=== PATIENT | female | born 1985 | race Caucasian/White ===

== ENCOUNTER 2019-07-18 19:15 | Inpatient (IN) | payer SELFPAY ==
[2019-07-18 19:18] VITALS: BP 135/82; PULSE 99; RESP 16; TEMP 36.8; O2SAT 95; BMI 17.9
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
--- NOTE | 2019-07-18 19:42 | PC.NURSE ---
blood and urine collected
--- NOTE | 2019-07-18 19:52 | PC.NURSE ---
Per CONSERVATION SCIENTIST, pt ok to eat and drink
--- NOTE | 2019-07-18 19:58 | PC.NURSE ---
Per , pt ok to eat and drink
[2019-07-18 19:59] LABS: Basophils % 0.5 %; Eosinophils # 0.1 10^3/uL (0.0-0.8); Eosinophils % 1.5 %; HCG, Serum Qual Negative (Negative); Hematocrit 37.7 % (37.0-47.0); Lymphocytes # 2.4 10^3/uL (0.8-4.8); Lymphocytes % 27.5 %; Mean Corpuscular HGB Conc 31.8 g/dL (30.0-36.0); Mean Corpuscular Hemoglobin 29.3 pg (28.0-34.0); Mean Platelet Volume 10.1 fL (7.4-10.4); Monocytes # 0.7 10^3/uL (0.2-0.9); Monocytes % 8.1 %; Neutrophils # 5.4 10^3/uL (1.8-7.7); Neutrophils % 62.2 %; Nucleated Red Blood Cells % 0 %; Platelet Count 361 10^3/cmm (130-400); Red Cell Distribution Width 12.2 % (12.1-15.1); White Blood Count 8.7 10^3/uL (4.0-10.0)
[2019-07-18 20:07] LABS: Alanine Aminotransferase 10 U/L (0-33); Albumin Level 4.6 g/dL (3.5-5.2); Alkaline Phosphatase 62 IU/L (35-105); Anion Gap 13.9 (5-19); Aspartate Amino Transferase 16 U/L (0-32); Blood Urea Nitrogen 12 mg/dL (6-20); Calcium 9.3 mg/dL (8.5-10.5); Carbon Dioxide 27 mmol/L (22-29); Chloride 103 mmol/L (98-107); Globulin 2.7 g/dL (1.3-4.6); Glucose 89 mg/dL (65-115); Osmolality Calculated 286 mOsm/kg (285-295); Potassium 3.9 mmol/L (3.5-5.1); Sodium 140 mmol/L (136-145); Total Bilirubin 0.2 mg/dL (0.15-1.2); Total Protein 7.3 g/dL (6.6-8.7)
[2019-07-18 20:09] LABS: Acetaminophen < 5.0 ug/mL (10-30); Alcohol Level < 10 mg/dL (0-10); Salicylate < 0.3 mg/dL (3-10)
[2019-07-18 20:32] VITALS: BP 114/68; PULSE 75; RESP 16; O2SAT 97
[2019-07-18 21:08] VITALS: BP 114/68; PULSE 79; RESP 14; O2SAT 97
--- NOTE | 2019-07-18 21:24 | PC.NURSE ---
COLLECTIONS REP obtaining VS and signature on admission paperwork.
--- NOTE | 2019-07-18 21:47 | PC.NURSE ---
DAIRY EQUIPMENT SPECIALIST attempted to get admission paperwork signed, pt started getting agitated and shouting at DAIRY EQUIPMENT SPECIALIST stating she is being stereo-typed, rambling on about her God, COVID-19, being treated as a prisoner, if this was the animal kingdom they would already have her jugular . Security called, staff unsuccessfully attempting to calm pt. Dr Vazquez notified of pt's behavior, that pt is exhibiting paranoid, flight of ideas, rambling on and on and yelling at staff. Order obtained to make pt a 96 hour hold. maple products supervisor notified and 96 hour hold process started.
[2019-07-18 22:00] VITALS: BP 106/73; PULSE 79; RESP 17; TEMP 36.6; O2SAT 98
[2019-07-18 22:06] LABS: Amphetamines Screen Urine Positive (Negative); Barbiturates Screen Urine Negative (Negative); Benzodiazepines Screen Urine Positive (Negative); Cocaine Screen Urine Negative (Negative); Opiate Screen Urine Negative (Negative); PCP Screen Urine Negative (Negative); THC Screen Urine Positive (Negative)
--- NOTE | 2019-07-18 23:02 | PC.NURSE ---
33 YEAR OLD FEMALE ADMITTED INITIALLY VOLUNTARILY TO UNIT FROM ER WITH DIAGNOSIS OF SI. UPON ARRIVAL TO UNIT PT BEGAN CRYING AND YELLING LOUDLY. SPEECH WAS DISORGANIZED WITH FLIGHT OF IDEAS. PT UNABLE TO COMPLETE TRAIN OF THOUGHT DURING THIS TIME. SPEECH PRESSURED AND PATIENT HYPER CATHOLIC. PT BECAME INCREASINGLY AGITATED AND YELLING TO GO HOME. SECURITY UP AND REMAINED ON UNIT. CALL MADE AND ORDER GIVEN FOR 96 HOUR INVOLUNTARY COMITT, BENZOS AND THC.EMENT. PT GIVEN COPY . REFUSED ANY MEDICATIONS BUT AGREEABLE TO SKIN ASSESSMENT. PT THEN LAYED DOWN IN BED AND FELL ASLEEP. BAL NEGATIVE AND DOA + FOR AMPHETAMINES
[2019-07-19 06:00] VITALS: BP 107/68; PULSE 68; RESP 16; TEMP 36.7; O2SAT 98
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
[2019-07-19 14:00] VITALS: BP 150/89; PULSE 62; RESP 18; TEMP 37.2; O2SAT 98
[2019-07-19] MEDS: ARIPiprazole 10 mg Tablet PO (18:24)
[2019-07-19 21:40] VITALS: BP 105/66; PULSE 68; RESP 16; TEMP 36.7; O2SAT 98
[2019-07-20 06:00] VITALS: BP 113/72; PULSE 75; RESP 17; TEMP 36.9; O2SAT 97
[2019-07-20] MEDS: ARIPiprazole 10 mg Tablet PO (08:42)
[2019-07-20 13:13] VITALS: BP 94/59; PULSE 64; RESP 18; TEMP 37; O2SAT 96
--- NOTE | 2019-07-20 15:41 | P.PN_ITS ---
Subjective NPU Subjective: Interval history: Debra presents today desiring to be discharged today and wondering how soon she can be discharged. As she attempts to communicate this, she continues to be quite disorganized, at times, unable to locate the appropriate word, having some word finding difficulties in addition to making statements that absolutely make zero sense but that make sense to her. She appears to be understanding what is being said to her but having, at times, just word salad. We discussed the fact that we are not trying to hold her for a long time, because she was starting to get very frustrated, but our plan was to release her when she was safe and her mind is clear again, and it certainly is not that. Mental Status Exam MSE Comments: This is an underweight, white female, with adequate dress, grooming, and eye contact. No abnormal movements, except for mild psychomotor retardation. Cooperative with exam in mild distress. Speech was normal rate and volume. Mood described as better/good; affect congruent. Thought process, disorganized. Thought content: patient denied any suicidal or homicidal ideation, there were no delusions reported but some paranoia noted, she denied any auditory or visual hallucinations. Attention and concentration appeared intact, and memory was unreliable because she could not communicate what she remembers, but none were formally tested. She is alert and oriented to person and place. Insight and judgment are impaired. Vitals/I&O/Wt Last Vital Signs Temp 98.8 F 07/20/19 20:55 Pulse 63 07/20/19 20:55 Resp 16 07/20/19 20:55 BP 108/62 07/20/19 20:55 Pulse Ox 98 07/20/19 20:55 Data NPU : 07/18/19 19:42 07/18/19 19:42 A&P Additional A&P Information (1) Methamphetamine use: This is a 33 year old, white female, with a long history of post-traumatic stress disorder, addiction to multiple drugs including methamphetamines, benzodiazepines, and alcohol, who presents quite disorganized and psychotic with a history of Abilify reportedly having significant results. RECOMMENDATION AND PLAN: Continue current medication. Continue q 15-minute checks for safety. Will work with social work to arrange sober living follow-up at the highest level of care to which she is willing to commit. (2) Suicidal ideation: (3) Psychosis: Involuntary Hold Information 96 Hour Hold: 96 Hour Involuntary Admission: Yes 96 Hour Hold Ending Date: 07/24/19 96 Hour Hold Ending Time: 21:25 Attestations NPU Medical Necessity Statement*: Inpatient hospitalization is medically necessary and the clinically appropriate intervention at this time. We will monitor medications and titrate as indicated or adjust as indicated. Likely length of stay 2-4 days. Coding Level of Care Code Acute Sapphire Stylus Grinder for Primitivo Manuel
[2019-07-20 20:55] VITALS: BP 108/62; PULSE 63; RESP 16; TEMP 37.1; O2SAT 98
[2019-07-21 06:00] VITALS: BP 108/64; PULSE 78; RESP 19; TEMP 37.1; O2SAT 97
[2019-07-21] MEDS: ARIPiprazole 10 mg Tablet PO (08:53)
[2019-07-21 13:10] VITALS: BP 109/73; PULSE 84; RESP 18; TEMP 37; O2SAT 97
--- NOTE | 2019-07-21 15:17 | P.PN_ITS ---
Subjective NPU Subjective: Interval history: Debra presents today with some improvement in her disorganization wanting to be discharged, but still having a level of disorganization that is concerning for her safety outside of the hospital. She reviewed her plan to go with a friend from high school or at least much earlier in her life, and she reports he has a father that is a laundry superintendent and went on to say something about Alonzo and earth, and having all those together in one collection, and struggled to really communicate her thoughts in a way that read confidence for discharge. We discussed the fact that this benjamín is romantically interested in her and she reported that her plan was to sleep on the couch and then see where things went, but this information writer expressed concern that with her current cognitive functioning that she would be at risk for being taken advantage of which she understood but also was resistant to. She continued to say things that were just out and out confusing. We discussed the fact that with time each day, she will get better and it would be more reasonable for her to discharge and be able to navigate what is already a tenuous situation. Mental Status Exam MSE Comments: This is an underweight, white female, with adequate dress, grooming, and eye contact. No abnormal movements. Cooperative with exam in no acute distress. Speech was more normal rate and volume with oddities of speech. Mood described as pretty good; affect euthymic. Thought process, still organize d. Thought content: patient denied any suicidal or homicidal ideation, there were no delusions reported or noted, patient denied any auditory or visual hallucinations. Attention, concentration, and memory appeared intact but were not formally tested. Alert and oriented times three. Insight and judgment are impaired. Vitals/I&O/Wt Last Vital Signs Temp 98.3 F 07/21/19 21:28 Pulse 82 07/21/19 21:28 Resp 18 07/21/19 21:28 BP 109/69 07/21/19 21:28 Pulse Ox 97 07/21/19 21:28 Data NPU : 07/18/19 19:42 07/18/19 19:42 A&P Additional A&P Information (1) Methamphetamine use: This is a 33 year old, white female, with a long history of post-traumatic stress disorder, addiction to multiple drugs including methamphetamines, benzodiazepines, and alcohol, who presents quite disorganized and psychotic with a history of Abilify reportedly having significant results. Continue current medication. Continue q 15-minute checks for safety. Will work with social work to arrange sober living follow-up at the highest level of care to which she is willing to commit. (2) Suicidal ideation: (3) Psychosis: Involuntary Hold Information 96 Hour Hold: 96 Hour Involuntary Admission: Yes 96 Hour Hold Ending Date: 07/24/19 96 Hour Hold Ending Time: 21:25 Attestations NPU Medical Necessity Statement*: Inpatient hospitalization is medically necessary and the clinically appropriate intervention at this time. We will monitor medications and titrate as indicated or adjust as indicated. Likely length of stay 2-4 days. Will look to discharge with her male friend when she is cognitively grounded again. Coding Level of Care Code Acute Clinical Field Specialist for Primitivo Manuel
[2019-07-21] MEDS: nicotine 2 mg Gum BUCCAL (15:50)
[2019-07-21 21:28] VITALS: BP 109/69; PULSE 82; RESP 18; TEMP 36.8; O2SAT 97
[2019-07-22 06:00] VITALS: BP 109/69; PULSE 82; RESP 18; TEMP 36.8; O2SAT 97
[2019-07-22 06:40] VITALS: PULSE 94; RESP 17; TEMP 36.9; O2SAT 96
[2019-07-22] MEDS: ARIPiprazole 10 mg Tablet PO (08:28)
[2019-07-22 14:00] VITALS: BP 101/69; PULSE 80; RESP 18
--- NOTE | 2019-07-22 19:29 | PM.NPN ---
Subjective NPU Subjective: Interval history: Debra presents today reporting that she is feeling better. She continues to have confusion in her speech, and she seems to be aware of this confusion in her speech, but she is really wanting to leave. We were able to have a fairly productive conversation about the gentleman that she is going to see, and she was able to articulate that she has actually been there before, and that she kind of had put her foot down and expressed clarity that they were having a platonic relationship. She reports that she does not want to go there now and just jump into the bed with him per se, which is why she has spoken about letting them know that she would be comfortable sleeping on the couch; however she endorses that she knows that he has romantic interest and that she is at a point in her life where she is feeling lonely and it would not be a bad thing to have someone who seems to care about her, to have some intimacy certainly on a mutually agreed upon healthy basis. She was frustrated with this instructional writer?s desire to keep her still, but understands our concerns about the fact that she is still having word finding difficulties, kind of gives paraphrasology coming close to what she is interested in saying, but often times not being able to get there, but again doing better day by day. Mental Status Exam MSE Comments: This is an underweight, white female, with adequate dress, grooming, and eye contact. No abnormal movements. Cooperative with exam in no acute distress. Speech was more normal rate and volume. Mood described as pretty good; affect somewhat elevated. Thought process, more organized, but still disorganization. Thought content: patient denied any suicidal or homicidal ideation, there were no delusions reported or noted, patient denied any auditory or visual hallucinations. Memory is somewhat unreliable. Insight and judgment are improving. Vitals/I&O/Wt Last Vital Signs Temp 98.5 F 07/22/19 06:40 Pulse 80 07/22/19 14:00 Resp 18 07/22/19 14:00 BP 101/69 07/22/19 14:00 Pulse Ox 96 07/22/19 06:40 Data NPU : 07/18/19 19:42 07/18/19 19:42 A&P Additional A&P Information (1) Methamphetamine use: This is a 33 year old, white female, with a long history of post-traumatic stress disorder, addiction to multiple drugs including methamphetamines, benzodiazepines, and alcohol, who presents quite disorganized and psychotic with a history of Abilify reportedly having significant results. Continue current medication. Continue q 15-minute checks for safety. Will work with social work to arrange sober living follow-up at the highest level of care to which she is willing to commit. (2) Suicidal ideation: (3) Psychosis: Involuntary Hold Information 96 Hour Hold: 96 Hour Involuntary Admission: Yes 96 Hour Hold Ending Date: 07/24/19 96 Hour Hold Ending Time: 21:25 Attestations NPU Medical Necessity Statement*: Inpatient hospitalization is medically necessary and the clinically appropriate intervention at this time. We will monitor medications and titrate as indicated or adjust as indicated. Likely length of stay 1-3 days. Will look to discharge with her male friend when she is cognitively grounded again. Coding Level of Care Code Acute Early Childhood Special Educator for Primitivo Manuel
[2019-07-22] MEDS: trazodone 50 mg Tablet PO (20:12)
[2019-07-22] MEDS: hyDROXYzine 25 mg Capsule 50 MG PO (20:12)
--- NOTE | 2019-07-22 21:15 | PC.NURSE ---
PRN MEDICATIONS PRN HYDROXYZINE 50MG AND TRAZODONE 50 MG GIVEN PER ORDERS AT PtS REQUEST TO HELP THEM SLEEP. THIS NURSE CHECKED ON Pt AT 2105, Pt RESTING IN BED, EYES CLOSED, RESPIRATIONS EVEN AND UNLABORED.
[2019-07-22 22:00] VITALS: BP 101/58; PULSE 86; RESP 17; TEMP 37; O2SAT 99
[2019-07-23 06:00] VITALS: BP 111/70; PULSE 84; RESP 16; TEMP 36.8; O2SAT 98
[2019-07-23] MEDS: ARIPiprazole 10 mg Tablet PO (08:19)
--- NOTE | 2019-07-23 13:03 | P.PN_ITS ---
Subjective NPU Subjective: Interval history: Debra presents today continuing to have her first and most focused conversation about discharge. She continues to want me to discharge her however continues to have some of the issues of disorganization that have plagued her, but there is improvement but concerns about her moving on and not taking the medication are significant. We discussed to her emilyrin how disjointed it seems like she is and it became more apparent as she got frustrated if she sticks in small talk she sounds absolutely normal but when she tries to speak in more broad terms and there is any chance an abstraction comes in to play, she gets lost in the abstraction. In her attempt to ask me if she could be discharged and tell her friend Lakhwinder to pick her up by 3, she said the following when thinking ?as maria elena ross (smiley face) think on prospect form, mother?s heart leading occupation as an example, my mother, the director radio news leads [email or web address]. As in the prospect leads her, isn?t that ironic, hahaha. Trivial matter 3 pm today? It is this kind of rambling, non-sensical statements that she will make anytime you give her more than five minutes of how are you are doing, how did you sleep, once you get into the meat of thought, she gets lost in these non-sensical abstractions. Mental Status Exam MSE Comments: This is a thin, underweight, white female, with adequate dress, grooming, and eye contact. No abnormal movements. Cooperative with exam in mild distress. Speech was decreased rate and volume. Mood described as pretty good but staying here is driving me crazy; affect odd at times. Thought process, disorganized still. Thought content: patient denied any suicidal or homicidal ideation, there were no delusions reported. She occasionally gets strangely rel igious, not necessarily hyper-confucianist, but just strange insertions of confucianist material when they do not seem to fit. There are no auditory or visual hallucinations reported She does not appear to be attending to internal stimuli. Attention and concentration are mostly intact. Memory is unreliable but none were formally tested. Alert and oriented times three. Insight and judgment are limited but improving. Vitals/I&O/Wt Last Vital Signs Temp 98.4 F 07/23/19 22:00 Pulse 73 07/23/19 22:00 Resp 18 07/23/19 22:00 BP 104/69 07/23/19 22:00 Pulse Ox 98 07/23/19 22:00 Weight last 48 hrs Weight 55.973 kg Data NPU : 07/18/19 19:42 07/18/19 19:42 A&P Additional A&P Information (1) Methamphetamine use: This is a 33 year old, white female, with a long history of post-traumatic stress disorder, addiction to multiple drugs including methamphetamines, benzodiazepines, and alcohol, who presents quite disorganized and psychotic with a history of Abilify reportedly having significant results. Continue current medication.Except: increase Abilify to 15mg po qam Continue q 15-minute checks for safety. Will work with social work to arrange sober living follow-up at the highest level of care to which she is willing to commit. (2) Suicidal ideation: (3) Psychosis: Involuntary Hold Information 96 Hour Hold: 96 Hour Involuntary Admission: Yes 96 Hour Hold Ending Date: 07/24/19 96 Hour Hold Ending Time: 21:25 Attestations NPU Medical Necessity Statement*: Inpatient hospitalization is medically necessary and the clinically appropriate intervention at this time. We will monitor medications and titrate as indicated or adjust as indicated. Likely length of stay 1-3 days. Will look to discharge with her male friend when she is cognitively grounded again. Coding Level of Care Code Acute Cribbing Setter for Primitivo Manuel
[2019-07-23] MEDS: ARIPiprazole 10 mg Tablet 5 MG PO (13:30)
[2019-07-23 14:00] VITALS: BP 114/74; PULSE 96; RESP 17; TEMP 36.8
[2019-07-23] MEDS: trazodone 50 mg Tablet PO (20:30)
[2019-07-23] MEDS: hyDROXYzine 25 mg Capsule 50 MG PO (20:30)
[2019-07-23 22:00] VITALS: BP 104/69; PULSE 73; RESP 18; TEMP 36.9; O2SAT 98
[2019-07-24 06:00] VITALS: BP 107/71; PULSE 82; RESP 20; TEMP 36.8; O2SAT 98
[2019-07-24] MEDS: ARIPiprazole 30 mg Tablet 15 MG PO (08:23)
[2019-07-24] MEDS: ARIPiprazole 10 mg Tablet PO (08:24)
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
[2019-07-24] MEDS: LORazepam 2 mg Tablet PO (11:21)
[2019-07-24] MEDS: haloperidol 5 mg Tablet PO (11:21)
--- NOTE | 2019-07-24 11:21 | PC.NURSE ---
PRN ATIVAN AND HALDOL DR. RAHMAN REQUESTED ATIVAN 2MG AND HALDOL 5MG PO[address] DR. RAHMAN TOLD PATIENT SHE WASN'T GOING HOME TODAY AND PATIENT STARTED YELLING AND HITTING HER HEAD WITH HER HANDS. STAFF GAVE PATIENT MEDICATION AND WALKED WITH PATIENT TO HER ROOM AND TALKED WITH HER. PATIENT IS COOPERATIVE AND LYING DOWN IN BED. WILL CONTINUE TO MONITOR FOR MEDICATION EFFECTIVENESS.
--- NOTE | 2019-07-24 12:30 | PC.NURSE ---
PRN ATIVAN AND HALDOL FOLLOW UP MEDICATION EFFECTIVE. PATIENT CALM AND COOPERATIVE.
[2019-07-24 13:57] VITALS: BP 114/72; PULSE 94; RESP 18; TEMP 36.8; O2SAT 100
--- NOTE | 2019-07-24 14:16 | PC.SOCIAL ---
21 Day Hold paperwork faxed to [facility].
--- NOTE | 2019-07-24 16:21 | PC.SOCIAL ---
Court for her 21 day hold hearing is scheduled for Friday, July 26, 2019 at 11:00am at the [facility].
[2019-07-24] MEDS: hyDROXYzine 25 mg Capsule 50 MG PO (20:39)
--- NOTE | 2019-07-24 21:15 | PC.NURSE ---
At 2038, [t given PRN Visteril per request.
[2019-07-24 21:40] VITALS: BP 108/68; PULSE 71; RESP 16; TEMP 36.6; O2SAT 98
[2019-07-25 06:00] VITALS: BP 107/70; PULSE 85; RESP 16; TEMP 36.9; O2SAT 97
--- NOTE | 2019-07-25 08:50 | P.PN_ITS ---
Subjective NPU Subjective: Interval history: Debra presents today reporting that she forgives this mortgage loan underwriter, and she wishes she did not act the way she did yesterday, but she did. She endorses wanting to get better and she is considering this [facility] program as a possible way for her to avoid being in an awkward situation that is not in her best interest. She reports that her mother is making a down payment for the program and she is somewhat excited about it. We discussed the hearing tomorrow in relation to extending her to a 21-day hold, and I assured her that she would not be kept any longer than was necessary to ensure her safety. She endorses that she is eating okay, and she is sleeping fine. This is a thin, underweight, white female, with adequate dress, grooming, and eye contact. No abnormal movements except for mild psychomotor retardation. Cooperative with exam in no acute distress. Speech was slightly decreased rate and volume. Mood described as feeling better than yesterday; affect congruent. Thought process, more organized. Thought content: patient denied any suicidal or homicidal ideation, there were no delusions reported or noted, patient denied any auditory or visual hallucinations. Attention, concentration, and memory appeared intact but were not formally tested. Alert and oriented times three. Insight and judgment are improving. Mental Status Exam MSE Comments: This is a thin, underweight, white female, with adequate dress, grooming, and eye contact. No abnormal movements except for mild psychomotor retardation. Cooperative with exam in no acute distress. Speech was slightly decreased rate and volume. Mood described as feeling better than yesterday; affect congruent. Thought process, more organized. Thought content: patient denied any suicidal or homicidal ideation, there were no delusions reported or noted, patient denied any auditory or visual hallucinations. Attention, concentration, and memory appeared intact but were not formally tested. Alert a nd oriented times three. Insight and judgment are improving. Vitals/I&O/Wt Last Vital Signs Temp 98.5 F 07/25/19 21:13 Pulse 68 07/25/19 21:13 Resp 18 07/25/19 21:13 BP 110/64 07/25/19 21:13 Pulse Ox 98 07/25/19 21:13 Data NPU : 07/18/19 19:42 07/18/19 19:42 A&P Additional A&P Information (1) Methamphetamine use: This is a 33 year old, white female, with a long history of post-traumatic stress disorder, addiction to multiple drugs including methamphetamines, benzodiazepines, and alcohol, who presents quite disorganized and psychotic with a history of Abilify reportedly having significant results with improvement on the Abilify. Continue current medication. Continue q 15-minute checks for safety. Will work with social work to arrange sober living follow-up at the highest level of care to which she is willing to commit. 21 day hold hearing tomorrow. (2) Suicidal ideation: (3) Psychosis: Involuntary Hold Information 96 Hour Hold: 96 Hour Involuntary Admission: Yes 96 Hour Hold Ending Date: 07/24/19 96 Hour Hold Ending Time: 21:25 Attestations NPU Medical Necessity Statement*: Inpatient hospitalization is medically necessary and the clinically appropriate intervention at this time. We will monitor medications and titrate as indicated or adjust as indicated. Likely length of stay 3-5 days. Will look to discharge to [facility] when she is cognitively grounded again. Coding Level of Care Code Acute Pallet Stone Inserter for Primitivo Manuel
[2019-07-25] MEDS: ARIPiprazole 30 mg Tablet 15 MG PO (09:17)
[2019-07-25 13:25] VITALS: BP 101/69; PULSE 74; RESP 18; TEMP 37.1; O2SAT 97
[2019-07-25] MEDS: nicotine 2 mg Gum BUCCAL (14:43)
[2019-07-25] MEDS: hyDROXYzine 25 mg Capsule 50 MG PO ×2 (17:19→20:27)
[2019-07-25] MEDS: OLANZapine ODT 5 MG TABLET PO (20:27)
[2019-07-25 21:13] VITALS: BP 110/64; PULSE 68; RESP 18; TEMP 36.9; O2SAT 98
--- NOTE | 2019-07-25 21:47 | PC.NURSE ---
Pt given Prn meds Visteril and Zyprexa per pt request.
[2019-07-26 05:54] VITALS: BP 105/67; PULSE 71; RESP 16; TEMP 37; O2SAT 97
[2019-07-26] MEDS: ARIPiprazole 30 mg Tablet 15 MG PO (09:04)
[2019-07-26] MEDS: hyDROXYzine 25 mg Capsule 50 MG PO (09:05)
--- NOTE | 2019-07-26 09:05 | PC.NURSE ---
PRN VISTARIL VISTARIL 50MG PO PER PATIENT C/O ANXIETY. WILL CONTINUE TO MONITOR FOR MEDICATION EFFECTIVENESS.
--- NOTE | 2019-07-26 10:00 | PC.NURSE ---
PRN VISTARIL FOLLOW UP MEDICATION EFFECTIVE. NO FURTHER C/O ANXIETY. PATIENT IS SITTING IN GROUP.
--- NOTE | 2019-07-26 10:47 | PC.NURSE ---
patient off unit patient off unit to go to court.
--- NOTE | 2019-07-26 11:42 | P.PN_ITS ---
Subjective NPU Subjective: Interval history: Debra presents today reporting that she feels good about her decision. We had a hearing today for a 21-day hold. At the hearing she deferred to the treatment team and accepted our decision that she needed to stay. On the unit, she again reported that she forgave me and that hearing the way that I phrased what I said on the stand made her feel better about staying and felt that it made her feel like it was not a punishment. We discussed the fact that she is continuing to improve, and that the expectation is that this should be a short extension of her 96-hour hold. This is a thin, underweight, white female, with adequate dress, grooming, and eye contact. No abnormal movements. Cooperative with exam in no acute distress. Speech was normal rate and volume. Mood described as okay; affect congruent. Thought process, organized. Her disorganization is resolving. Thought content: patient denied any suicidal or homicidal ideation, there were no delusions reported or noted, patient denied any auditory or visual hallucinations. Memory is still unreliable. Alert and oriented times three. Insight and judgment are improving. Mental Status Exam MSE Comments: This is a thin, underweight, white female, with adequate dress, grooming, and eye contact. No abnormal movements. Cooperative with exam in no acute distress. Speech was normal rate and volume. Mood described as okay; affect congruent. Thought process, organized. Her disorganization is resolving. Thought content: patient denied any suicidal or homicidal ideation, there were no delusions reported or noted, patient denied any auditory or visual hallucinations. Memory is still unreliable. Alert and oriented times three. Insight and judgment are improving. Vitals/I&O/Wt Last Vital Signs Temp 98.5 F 07/26/19 21:40 Pulse 76 07/26/19 21:40 Resp 16 07/26/19 21:40 BP 102/65 07/26/19 21:40 Pulse Ox 98 07/26/19 21:40 Data NPU : 07/18/19 19:42 07/18/19 19:42 A&P Additional A&P Information (1) Methamphetamine use: This is a 33 year old, white female, with a long history of post-traumatic stress disorder, addiction to multiple drugs including methamphetamines, benzodiazepines, and alcohol, who presents quite disorganized and psychotic with a history of Abilify reportedly having significant results with improvement on the Abilify. Continue current medication. Continue q 15-minute checks for safety. Will work with social work to arrange sober living follow-up at the highest level of care to which she is willing to commit. 21 day hold granted (2) Suicidal ideation: (3) Psychosis: Involuntary Hold Information 96 Hour Hold: 96 Hour Involuntary Admission: Yes 96 Hour Hold Ending Date: 07/24/19 96 Hour Hold Ending Time: 21:25 Attestations NPU Medical Necessity Statement*: Inpatient hospitalization is medically necessary and the clinically appropriate intervention at this time. We will monitor medications and titrate as indicated or adjust as indicated. Likely length of stay 3-5 days. Will look to discharge to [facility] when she is cognitively grounded again. Coding Level of Care Code Acute Tactical Response Group Officer for Primitivo Manuel
--- NOTE | 2019-07-26 11:45 | PC.NURSE ---
PATIENT HAS RETURNED TO UNIT FROM COURT.
[2019-07-26 13:31] VITALS: BP 110/75; PULSE 88; RESP 18; TEMP 37.1; O2SAT 97
[2019-07-26 21:40] VITALS: BP 102/65; PULSE 76; RESP 16; TEMP 36.9; O2SAT 98
[2019-07-27 06:00] VITALS: BP 113/78; PULSE 85; RESP 18; TEMP 37; O2SAT 97
[2019-07-27] MEDS: ARIPiprazole 30 mg Tablet 15 MG PO (08:11)
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
[2019-07-27 13:14] VITALS: BP 142/84; PULSE 93; RESP 20; TEMP 36.3; O2SAT 97
[2019-07-27 21:20] VITALS: BP 105/58; PULSE 93; RESP 17; TEMP 37.2; O2SAT 97
[2019-07-28 06:00] VITALS: BP 116/79; PULSE 91; RESP 18; TEMP 36.9; O2SAT 94
[2019-07-28] MEDS: ARIPiprazole 30 mg Tablet 15 MG PO (08:15)
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
[2019-07-28 08:53] VITALS: BP 116/79; PULSE 91; RESP 18; TEMP 36.9; O2SAT 94
== END 2019-07-28 11:25 | disposition home or self-care (01) | DRG 885 ==
LOC: ER 20:36 → NP 20:43
PROVIDERS: Admitting Provider Psychiatry & Neurology Psychiatry; Emergency Provider Physician Assistant; Family Provider Family Medicine; Visit Provider Psychiatry & Neurology Psychiatry
DX: F23 Brief psychotic disorder (principal); R45.851 Suicidal ideations; F15.90 Other stimulant use, unspecified, uncomplicated; Z62.810 Personal history of physical and sexual abuse in childhood; F17.210 Nicotine dependence, cigarettes, uncomplicated
CPT/HCPCS: 12345; 80053; 80306; 80307; 84703; 85025; 99284

== ENCOUNTER 2020-03-09 12:57 | Inpatient (IN) | payer SELFPAY ==
[2020-03-09 12:57] VITALS: BP 131/88; PULSE 98; RESP 18; TEMP 36.8; O2SAT 100; BMI 18.8
--- NOTE | 2020-03-09 13:08 | W.ED.PSYCH ---
HPI - Psych General: Chief Complaint: Psychiatric Symptoms Stated Complaint: AUDITORY HALLUCINATIONS Time Seen by Provider: 03/09/20 12:58 Source: patient and EMS Mode of arrival: EMS Limitations: no limitations History of Present Illness: HPI Narrative: 34-year-old female with a history of psychiatric issues along with methamphetamine abuse. Patient used methamphetamine last night and went to the police this morning she is having hallucinations. Patient here is talking to herself and hallucinating and talking to other people in the room that are not there. She denies any SI or HI but states she wants to get help she does not feel stable. Associated symptoms: Reports auditory hallucinations Review of Systems Const: Denies: fever(s), chills, body aches or change in appetite Eyes: Denies: blurry vision or eye discomfort ENMT: Denies: throat pain or dental pain Card: Denies: chest pain Resp: Denies: dyspnea GI: Denies: abdominal pain, nausea, vomiting or diarrhea : Denies: dysuria Musc: Denies: neck pain or back pain Skin/Breast: Denies: rash Neuro: Denies: headache(s) Psych: Reports: paranoia and auditory hallucinations Chadd/Lymph: Denies: easy bruising All/Imm: Denies: urticaria PFSH ED PFSH: Social History Smoking and tobacco status: current every day smoker Physical Exam Const: COMMON NORMALS: no acute distress, patient oriented x3 and healthy appearing HENMT: COMMON NORMALS: normocephalic and atraumatic HEAD & SCALP: normocephalic and atraumatic Eye: COMMON NORMALS: Equal, round and reactive pupils present and EOMs intact bilaterally PUPIL: Yes Equal, round and reactive pupils present Neck/C-Spine: COMMON NORMALS: full ROM and supple Chest: COMMONS NORMALS: normal inspection of the chest and normal palpation of entire chest wall Resp: COMMON NORMALS: normal respiratory effort, No retractions, No use of accessory muscles and clear to auscultation bilaterally AUSCULTATION: clear to auscultation bilaterally Cardio: COMMON NORMALS: regular rate, regular rhythm and No murmurs present (Cardio) RATE: regular rate RHYTHM: regular rhythm GI: COMMON NORMALS: Normal to inspection, nondistended, normoactive bowel sounds present, Soft to palpation, non-tender and no masses PALPATION: Yes Soft to palpation Extremity: COMMON NORMALS: normal to inspection and full ROM Neuro: COMMON NORMALS: patient oriented x3, moves all extremities and no focal motor deficits Psych: ATTITUDE: Yes paranoid and Yes bizarre ACTIVITY/MOTOR BEHAVIOR: Yes fidgeting THOUGHT PROCESS: disorganized THOUGHT CONTENT: Yes Hallucination(s) present Skin: COMMON NORMALS: no rashes or lesions noted and no wounds GENERAL SKIN EXAM: no rashes or lesions noted MDM - Psych MDM Narrative: Medical decision making narrative: Debra presents here with hallucinations along with acute psychosis. Patient is medically cleared and is voluntary. Patient has been stable while here. Spoke to psychiatrist and will admit. Lab Data: Labs: Lab Results 03/09/20 03/09/20 03/09/20 Range/Units 13:10 13:10 13:10 WBC 11.7 H (4.0-10.0) 10^3/ uL RBC 4.54 (4.1-5.3) 10^6/u L Hgb 13.6 (11.5-15.3) g/dL Hct 41.8 (37.0-47.0) % MCV 92.1 (81-99) fL MCH 30.0 (28.0-34.0) pg MCHC 32.5 (30.0-36.0) g/dL RDW 12.8 (12.1-15.1) % Plt Count 410 H (130-400) 10^3/c mm MPV 9.4 (7.4-10.4) fL Neut % (Auto) 72.2 % Lymph % (Auto) 19.0 % [place] % (Auto) 7.8 % Eos % (Auto) 0.4 % Baso % (Auto) 0.3 % Neut # (Auto) 8.45 H (1.8-7.7) 10^3/u L Lymph # (Auto) 2.2 (0.8-4.8) 10^3/u L [place] # (Auto) 0.9 (0.2-0.9) 10^3/u L Eos # (Auto) 0.1 (0.0-0.8) 10^3/u L Baso # (Auto) 0.0 (0.0-0.1) 10^3/u L Nucleated RBC % (a uto) 0 % Nucleated RBCs # 0.0 /100WBC Sodium 136 (136-145) mmol/L Potassium 3.5 (3.5-5.1) mmol/L Chloride 99 (98-107) mmol/L Carbon Dioxide 26 (22-29) mmol/L Anion Gap 14.5 (5-19) BUN 14 (6-20) mg/dL Creatinine 0.7 (0.5-0.9) mg/dL GFR Calculation 97.0 (90-130) mL/min Glucose 94 (65-115) mg/dL Calculated Osmolal ity 282 L (285-295) mOsm/k g Calcium 9.1 (8.5-10.5) mg/dL Total Bilirubin 0.4 (0.15-1.2) mg/dL AST 16 (0-32) U/L ALT 10 (0-33) U/L Alkaline Phosphata se 88 (35-105) IU/L Total Protein 7.7 (6.6-8.7) g/dL Albumin 4.7 (3.5-5.2) g/dL Globulin 3.0 (1.3-4.6) g/dL HCG, Qual Negative (Negative) Salicylates < 0.3 L (3-10) mg/dL Urine Opiates Scre en (Negative) ng/mL Acetaminophen < 5.0 L (10-30) ug/mL Ur Barbiturates Sc reen (Negative) ng/mL Ur Phencyclidine S crn (Negative) ng/mL Ur Amphetamines Sc reen (Negative) ng/mL U Benzodiazepines Scrn (Negative) ng/mL Urine Cocaine Scre en (Negative) ng/mL U Marijuana (THC) Screen (Negative) ng/mL Ethyl Alcohol < 10 (0-10) mg/dL 03/09/20 Range/Units 13:10 WBC (4.0-10.0) 10^3/ uL RBC (4.1-5.3) 10^6/u L Hgb (11.5-15.3) g/dL Hct (37.0-47.0) % MCV (81-99) fL MCH (28.0-34.0) pg MCHC (30.0-36.0) g/dL RDW (12.1-15.1) % Plt Count (130-400) 10^3/c mm MPV (7.4-10.4) fL Neut % (Auto) % Lymph % (Auto) % [place] % (Auto) % Eos % (Auto) % Baso % (Auto) % Neut # (Auto) (1.8-7.7) 10^3/u L Lymph # (Auto) (0.8-4.8) 10^3/u L [place] # (Auto) (0.2-0.9) 10^3/u L Eos # (Auto) (0.0-0.8) 10^3/u L Baso # (Auto) (0.0-0.1) 10^3/u L Nucleated RBC % (a uto) % Nucleated RBCs # /100WBC Sodium (136-145) mmol/L Potassium (3.5-5.1) mmol/L Chloride (98-107) mmol/L Carbon Dioxide (22-29) mmol/L Anion Gap (5-19) BUN (6-20) mg/dL Creatinine (0.5-0.9) mg/dL GFR Calculation (90-130) mL/min Glucose (65-115) mg/dL Calculated Osmolal ity (285-295) mOsm/k g Calcium (8.5-10.5) mg/dL Total Bilirubin (0.15-1.2) mg/dL AST (0-32) U/L ALT (0-33) U/L Alkaline Phosphata se (35-105) IU/L Total Protein (6.6-8.7) g/dL Albumin (3.5-5.2) g/dL Globulin (1.3-4.6) g/dL HCG, Qual (Negative) Salicylates (3-10) mg/dL Urine Opiates Scre en Negative (Negative) ng/mL Acetaminophen (10-30) ug/mL Ur Barbiturates Sc reen Negative (Negative) ng/mL Ur Phencyclidine S crn Negative (Negative) ng/mL Ur Amphetamines Sc reen Positive H (Negative) ng/mL U Benzodiazepines Scrn Negative (Negative) ng/mL Urine Cocaine Scre en Negative (Negative) ng/mL U Marijuana (THC) Screen Positive H (Negative) ng/mL Ethyl Alcohol (0-10) mg/dL Discharge Plan Discharge Patient Disposition: Admitted As Inpatient Clinical Impression: Methamphetamine use, Acute psychosis Condition: Stable Coding Level of Care Code ED Home Health Provider for Chg Fwd Exam Comprehensive
[2020-03-09] MEDS: LORazepam 1 mg Tablet 2 MG PO (13:24)
[2020-03-09 13:32] LABS: Basophils % 0.3 %; Eosinophils # 0.1 10^3/uL (0.0-0.8); Eosinophils % 0.4 %; HCG Qualitative Urine. Negative (Negative); Hematocrit 41.8 % (37.0-47.0); Hemoglobin 13.6 g/dL (11.5-15.3); Lymphocytes # 2.2 10^3/uL (0.8-4.8); Mean Corpuscular HGB Conc 32.5 g/dL (30.0-36.0); Mean Corpuscular Volume 92.1 fL (81-99); Mean Platelet Volume 9.4 fL (7.4-10.4); Monocytes # 0.9 10^3/uL (0.2-0.9); Monocytes % 7.8 %; Neutrophils # 8.45 10^3/uL (1.8-7.7); Neutrophils % 72.2 %; Nucleated Red Blood Cells % 0 %; Platelet Count 410 10^3/cmm (130-400); Red Blood Count 4.54 10^6/uL (4.1-5.3); Red Cell Distribution Width 12.8 % (12.1-15.1); White Blood Count 11.7 10^3/uL (4.0-10.0)
[2020-03-09 13:36] VITALS: RESP 18
[2020-03-09 13:39] LABS: Amphetamines Screen Urine Positive (Negative); Barbiturates Screen Urine Negative (Negative); Benzodiazepines Screen Urine Negative (Negative); Cocaine Screen Urine Negative (Negative); Opiate Screen Urine Negative (Negative); PCP Screen Urine Negative (Negative); THC Screen Urine Positive (Negative)
[2020-03-09 13:48] LABS: Alanine Aminotransferase 10 U/L (0-33); Albumin Level 4.7 g/dL (3.5-5.2); Alkaline Phosphatase 88 IU/L (35-105); Anion Gap 14.5 (5-19); Aspartate Amino Transferase 16 U/L (0-32); Blood Urea Nitrogen 14 mg/dL (6-20); Calcium 9.1 mg/dL (8.5-10.5); Carbon Dioxide 26 mmol/L (22-29); Chloride 99 mmol/L (98-107); Glucose 94 mg/dL (65-115); Osmolality Calculated 282 mOsm/kg (285-295); Potassium 3.5 mmol/L (3.5-5.1); Sodium 136 mmol/L (136-145); Total Bilirubin 0.4 mg/dL (0.15-1.2); Total Protein 7.7 g/dL (6.6-8.7)
[2020-03-09 13:51] LABS: Acetaminophen < 5.0 ug/mL (10-30); Alcohol Level < 10 mg/dL (0-10); Salicylate < 0.3 mg/dL (3-10)
[2020-03-09 14:13] VITALS: RESP 18
[2020-03-09 14:21] VITALS: BP 137/89; PULSE 79; RESP 18; TEMP 36.9
[2020-03-09 19:55] VITALS: BP 101/64; PULSE 3; RESP 14; TEMP 36.8; O2SAT 99
[2020-03-10 06:00] VITALS: BP 105/66; PULSE 85; RESP 14; TEMP 36.4; O2SAT 93
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
[2020-03-10 14:00] VITALS: BP 99/64; PULSE 69; RESP 16; TEMP 36.7; O2SAT 97
--- NOTE | 2020-03-10 19:47 | PC.NURSE ---
RESTING IN HER BED, APPEARS VERY NERVOUS, FEET MOVING CONTINUOUSLY. SAYS WOULD LIKE SOMETHING FOR ANXIETY. I DON'T THINK I HAVE HAD ANYTHING TODAY . WILL NOTIFY MED NURSE.
[2020-03-10] MEDS: hyDROXYzine 25 mg Capsule 50 MG PO (20:00)
[2020-03-10] MEDS: trazodone 50 mg Tablet PO (20:01)
[2020-03-10 20:08] VITALS: BP 95/54; RESP 16
[2020-03-10] MEDS: OLANZapine 5 mg ODT PO (20:21)
--- NOTE | 2020-03-10 20:23 | PC.NURSE ---
TALKING TO SELF, YELLING. SAYS VOICES ARE POSESSING HER, GIVEN ZYPREXA 5 MG PO ALONG WITH SLEEPING MEDS EARLIER.
[2020-03-11 06:00] VITALS: RESP 15
[2020-03-11 13:39] VITALS: BP 95/55; PULSE 70; RESP 16; TEMP 37.1; O2SAT 96
--- NOTE | 2020-03-11 13:45 | PC.RESP ---
Smoking Cessation information sent to patient.
--- NOTE | 2020-03-11 18:50 | P.PN_ITS ---
Subjective NPU Subjective: Interval history: Debra presents today continuing to struggle with thought disorder. However she is taking her medication and reports to feel a little better. She continues to be quite isolative and is sleeping all of her [place]. She denied any side effects of the medication and is eating okay and sleeping quite a bit. Mental Status Exam MSE Comments: This is an underweight white female in hospital scrubs with limited grooming and adequate eye contact. No abnormal movements except for psychomotor retardation. Cooperative with exam in no acute distress. Speech w as normal rate decreased volume. Mood described as tired, affect guarded. Thought process disorganized at times thought content: Patient denied suicidal or homicidal ideation, there are no delusions reported but clear paranoia noted, she denied auditory visual hallucinations but concerns for attending to internal stimuli exist. Attention and concentration were limited and memory was somewhat reliable but none were formally tested. She is alert oriented x3. Insight judgment are impaired, impulse control is impaired. Vitals/I&O/Wt Last Vital Signs Temp 99.3 F 03/11/20 21:26 Pulse 67 03/11/20 21:26 Resp 14 03/11/20 21:26 BP 109/69 03/11/20 21:26 Pulse Ox 97 03/11/20 21:26 Weight last 48 hrs Weight 54.431 kg Data NPU : 03/09/20 13:10 03/09/20 13:10 A&P Additional A&P Information (1) Acute psychosis: (2) Methamphetamine use: This is a 34-year-old white female with a long history of mental health issues along with active addiction who presents off of her medication and apparently open to a trial of medication. 1. Continue current medication. 2. Continue every 15 minute checks for safety. 3. Encourage individual, group and milieu therapy. 4. Encourage sober living treatment after discharge at the highest level of care to which she is willing to commit. Involuntary Hold Information 96 Hour Hold: 96 Hour Involuntary Admission: No 96 Hour Hold Ending Date: 07/24/19 96 Hour Hold Ending Time: 21:25 Attestations NPU Medical Necessity Statement*: Inpatient hospitalization is medically necessary and the clinically appropriate intervention at this time. We will monitor medications and make changes as indicated. Likely length of stay 3-5 days. Coding Level of Care Code Acute Formulator Compounder for Primitivo Manuel
[2020-03-11 21:26] VITALS: BP 109/69; PULSE 67; RESP 14; TEMP 37.4; O2SAT 97
--- NOTE | 2020-03-11 21:38 | PC.NURSE ---
HAS BEEN RESTING IN BED, PLEASANT, WAS GIVEN MEDS TO HELP REST TONIGHT.
--- NOTE | 2020-03-11 23:49 | PC.NURSE ---
Addendum entered by Tg Garcia RN 03/11/20 23:55: Follow up @2099 Pt is resting in her room. No apparent s/s distress at this time. Original Note: PRNs @1999 Pt requested medication for sleep and anxiety. She received Trazodone 50mg PO, Visteril 50mg Po. \ @2020 Pt came to the desk requesting additional medication. She is still anxious. Pt was given 5mg Zyprexa Zydis PO. Will continue to monitor the patient
[2020-03-12 06:00] VITALS: BP 102/68; PULSE 90; RESP 16; TEMP 36.7; O2SAT 95
[2020-03-12] MEDS: hyDROXYzine 25 mg Capsule 50 MG PO (12:36)
--- NOTE | 2020-03-12 12:37 | PC.NURSE ---
Addendum entered by Ashleigh Campbell LPN 03/12/20 14:11: prn med ineffective see next nurses note Original Note: PRN VISTARIL 50 MG GIVEN PO PER PT C/O ANXIETY. PT HAS PRESSURED SPEECH, HAVING TROUBLE SITTING STILL. WILL CONT TO MONITOR
[2020-03-12] MEDS: nicotine 2 mg Gum BUCCAL (13:36)
[2020-03-12 14:00] VITALS: BP 109/70; PULSE 88; RESP 18; TEMP 36.8; O2SAT 97
[2020-03-12] MEDS: haloperidol 5 mg Tablet PO (14:11)
--- NOTE | 2020-03-12 14:11 | PC.NURSE ---
PRN HALDOL 5 MG GIVEN PO FOR SEVERE AGITATION. PT UP YELLING INTO THE NURSES STATION WILL I SEE YOU UP THERE SHAKING YOUR ASS! NO ONE WAS AT THE DESK AT THE TIME PT WAS YELLING. NPU SECURITY CONTROL CENTER OPERATOR CAME OUT TO SPEAK WITH PT. PT YELLING AT SECURITY CONTROL CENTER OPERATOR, CALLED HER A BITCH PT TOOK MED WILLINGLY. WILL CONT TO MONITOR
--- NOTE | 2020-03-12 18:09 | P.PN_ITS ---
Subjective NPU Subjective: Interval history: Debra presents today having had some rough moments where she had some outbursts. She continues to withdraw and adjust to the resumption of medication. Working with social work to find appropriate options for discharge. Specifically trying to see if she can get back to the core program. At the time that she was seen by this specification writer she had calm down and was being appropriate. She did have a as needed medication to assist with that process. Mental Status Exam MSE Comments: This is an underweight white female in hospital scrubs with limited grooming and adequate eye contact. No abnormal movements except for psychomotor retardation. Cooperative with exam in mild distress. Speech was decreased rate decreased volume. Mood described as better than earlier, affect guarded. Thought process disorganized at times thought content: Patient denied suicidal or homicidal ideation, there are no delusions reported but clear paranoia noted, she denied auditory visual hallucinations but concerns for attending to internal stimuli exist. Attention and concentration were limited and memory was somewhat reliable but none were formally tested. She is alert oriented x3. Insight judgment are impaired, impulse control is impaired. Vitals/I&O/Wt Last Vital Signs Temp 99.2 F 03/12/20 20:34 Pulse 71 03/12/20 20:34 Resp 18 03/12/20 20:34 BP 88/49 03/12/20 20:34 Pulse Ox 97 03/12/20 20:34 Data NPU : 03/09/20 13:10 03/09/20 13:10 A&P Additional A&P Information (1) Acute psychosis: (2) Methamphetamine use: This is a 34-year-old white female with a long history of mental health issues along with active addiction who presents off of her medication and apparently open to a trial of medication. 1. Continue current medication. 2. Continue every 15 minute checks for safety. 3. Encourage individual, group and milieu therapy. 4. Encourage sober living treatment after discharge at the highest level of care to which she is willing to commit. Involuntary Hold Information 96 Hour Hold: 96 Hour Involuntary Admission: No 96 Hour Hold Ending Date: 07/24/19 96 Hour Hold Ending Time: 21:25 Attestations NPU Medical Necessity Statement*: Inpatient hospitalization is medically necessary and the clinically appropriate intervention at this time. We will monitor medications and make changes as indicated. Likely length of stay 2-4 days. Coding Level of Care Code Acute Senior Bi Architect for Primitivo Manuel
[2020-03-12 20:34] VITALS: BP 88/49; PULSE 71; RESP 18; TEMP 37.3; O2SAT 97
[2020-03-13 06:00] VITALS: BP 99/57; PULSE 71; RESP 15; TEMP 37.3; O2SAT 95
[2020-03-13 14:00] VITALS: BP 100/64; PULSE 67; RESP 16; TEMP 37.1; O2SAT 98
[2020-03-13] MEDS: hyDROXYzine 25 mg Capsule 50 MG PO ×2 (17:42→20:03)
--- NOTE | 2020-03-13 18:23 | P.PN_ITS ---
Subjective NPU Subjective: Interval history: Debra presented today reporting that she is doing better and clearly being less paranoid and internally preoccupied. Unfortunately core is not going to be a viable option for multiple reasons. She seems to have limited investment in doing something of significance at this time, reporting that she is going to return to someplace with her friend. It is likely that this is not the best idea for her recovery and that she is going to the greater intervention sometime soon. We discussed the risks, benefits and alternatives of different recovery options and she understood and endorsed a plan to try things from home. We discussed the plan for discharge tomorrow. Mental Status Exam MSE Comments: This is an underweight white female in hospital scrubs with limited grooming and adequate eye contact. No abnormal movements except for psychomotor retardation. Cooperative with exam in no acute distress. Speech was more normal rate decreased volume. Mood described as okay, affect less guarded. Thought process more organized thought content: Patient denied suicidal or homicidal ideation, there are no delusions reported but resolving paranoia noted, she denied auditory or visual hallucinations but concerns for attending to internal stimuli exist. Attention and concentration were limited and memory was somewhat reliable but none were formally tested. She is alert oriented x3. Insight judgment are limited, impulse control is impaired. Vitals/I&O/Wt Last Vital Signs Temp 97.4 F L 03/13/20 22:00 Pulse 64 03/13/20 22:00 Resp 17 03/13/20 22:00 BP 99/64 03/13/20 22:00 Pulse Ox 97 03/13/20 22:00 Data NPU : 03/09/20 13:10 03/09/20 13:10 A&P Additional A&P Information (1) Acute psychosis: (2) Methamphetamine use: This is a 34-year-old white female with a long history of mental health issues along with active addiction who presents off of her medication and apparently open to a trial of medication. 1. Continue current medication. 2. Continue every 15 minute checks for safety. 3. Encourage individual, group and milieu therapy. 4. Encourage sober living treatment after discharge at the highest level of care to which she is willing to commit. Involuntary Hold Information 96 Hour Hold: 96 Hour Involuntary Admission: No 96 Hour Hold Ending Date: 07/24/19 96 Hour Hold Ending Time: 21:25 Attestations NPU Medical Necessity Statement*: Inpatient hospitalization is medically necessary and the clinically appropriate intervention at this time. We will monitor medications and make changes as indicated. Likely length of stay 1-3 days. Coding Level of Care Code Acute Medical Office Receptionist for Primitivo Manuel
[2020-03-13] MEDS: trazodone 50 mg Tablet PO (20:02)
[2020-03-13] MEDS: loperamide 2 mg Capsule PO (20:03)
[2020-03-13 22:00] VITALS: BP 99/64; PULSE 64; RESP 17; TEMP 36.3; O2SAT 97
[2020-03-14 06:00] VITALS: BP 68/41; PULSE 65; RESP 16; TEMP 37.1; O2SAT 96
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
[2020-03-14 11:41] VITALS: BP 68/41; PULSE 65; RESP 16; TEMP 37.1; O2SAT 96
== END 2020-03-14 12:36 | disposition home or self-care (01) | DRG 897 ==
LOC: ER 13:57 → NP 14:05
PROVIDERS: Admitting Provider Psychiatry & Neurology Psychiatry; Emergency Provider Emergency Medicine; Visit Provider Psychiatry & Neurology Psychiatry
DX: F15.10 Other stimulant abuse, uncomplicated (principal); F23 Brief psychotic disorder; Z91.14 Patient's other noncompliance with medication regimen
CPT/HCPCS: 12345; 80053; 80306; 80307; 81025; 85025; 99284

== ENCOUNTER → 2020-09-23 09:32 | Outpatient (BNVA) | payer OTHER, SELFPAY | PROVIDERS: Visit Provider Nurse Practitioner Family | DX: J06.9 Acute upper respiratory infection, unspecified (principal); Z20.822 Contact with and (suspected) exposure to COVID-19 | CPT/HCPCS: 87635 ==

== ENCOUNTER → 2021-11-08 15:16 | Outpatient (BNVA) | payer BC, MEDICAID, SELFPAY | PROVIDERS: Visit Provider Emergency Medicine | DX: E07.9 Disorder of thyroid, unspecified (principal); R63.4 Abnormal weight loss; R00.2 Palpitations | CPT/HCPCS: 84439; 84443 ==

== ENCOUNTER 2022-05-11 13:11 | Outpatient (CLI) | payer BC, MEDICAID, SELFPAY ==
--- NOTE | 2022-05-11 15:15 | MR_ITS ---
WS: [id number] MRI CERVICAL SPINE NONCONTRAST TECHNIQUE: Sagittal T1, T2 and STIR imaging. Axial T2, gradient, and fiesta imaging. CLINICAL INFORMATION: M54.2 - Cervicalgia COMPARISON: None. FINDINGS: Straightening with slight reversal normal cervical lordosis. Slight anterolisthesis C2 on C3. Disc bu lging worse at C5-C6 and C6-C7. Cord signal is normal. C2-C3: Mild facet arthropathy. Spinal canal and foramen are patent. C3-C4: Mild disc osteophytic ridging. Slight effacement of ventral thecal sac. Slight anterolisthesis . Mild facet arthropathy. Spinal canal and foramen are patent. C4-C5: Disc osteophyte complex with endplate ridging. Mild facet arthropathy. Spinal canal and forame n are patent. C5-C6: Disc osteophyte complex with slight effacement of ventral thecal sac. Mild LEFT greater than R IGHT foraminal narrowing. Spinal canal is patent. Mild facet arthropathy. C6-C7: Disc osteophyte complex with endplate ridging. Slight contact of the cervical cord with mild c entral canal stenosis. Mild to moderate LEFT and no significant RIGHT foraminal narrowing. Mild facet arthropathy. C7-T1: Normal. Visualized brain stem structures: Normal. Prevertebral soft tissues: Normal. MR/MR cervical spin wo con* [id number] IMPRESSION: 1. Straightening with slight reversal normal cervical lordosis. Slight anterol isthesis C2 on C3 and C3 on C4. 2. Disc osteophyte protrusion C6-C7 with slight indentation cervical cord. Mil d central canal stenosis. Mild to moderate LEFT C6-C7 foraminal narrowing. 3. Disc osteophyte complex C5-C6 with mild LEFT greater than RIGHT bony forami nal narrowing. Slight contact of the cervical cord. Spinal canal is patent.
== END 2022-05-11 13:12 | disposition home or self-care (01) ==
LOC: RAD 13:12
PROVIDERS: PCP Family Medicine; Visit Provider Specialist
DX: M54.2 Cervicalgia (principal); M25.78 Osteophyte, vertebrae; M48.02 Spinal stenosis, cervical region
CPT/HCPCS: 72141

== ENCOUNTER → 2022-06-23 10:48 | Outpatient (BNVA) | payer BC, MEDICAID, SELFPAY | PROVIDERS: PCP Family Medicine; Visit Provider Family Medicine | DX: Z30.09 Encounter for other general counseling and advice on contraception (principal); Z30.9 Encounter for contraceptive management, unspecified; N80.9 Endometriosis, unspecified; Z32.02 Encounter for pregnancy test, result negative | CPT/HCPCS: 81025 ==

== ENCOUNTER → 2022-07-15 14:54 | Outpatient (BNVA) | payer BC, MEDICAID, SELFPAY | PROVIDERS: PCP Family Medicine; Referring Provider Specialist; Visit Provider Specialist | DX: G56.03 Carpal tunnel syndrome, bilateral upper limbs (principal) | CPT/HCPCS: 73110 ==

== ENCOUNTER 2023-07-17 14:58 | Emergency (ER) | payer BC, MEDICAID, SELFPAY ==
[2023-07-17 14:59] VITALS: BP 116/80; PULSE 85; RESP 15; TEMP 36.7; O2SAT 97
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
--- NOTE | 2023-07-17 15:26 | XRR_ITS ---
PROCEDURE INFORMATION: Exam: XR Left Hand Exam date and time: 07/17/2023 3:43 PM Age: 37 years old Clinical indication: Injury or trauma; Other: Cat bite; Middle finger; Left; Additional info: Cat bite, infection, contracture TECHNIQUE: Imaging protocol: Radiologic exam of the left hand. Views: 3 or more views. COMPARISON: No relevant prior studies available. FINDINGS: Bones/joints: There is a small lytic focus at the dorsal aspect of the distal metaphysis on the 3rd proximal phalanx on the left hand with associated periosteal thickening. Findings are suspicious for osteomyelitis. No dislocation. Normal bone mineralization. No joint effusion. Soft tissues: Moderate soft tissue swelling around the proximal 3rd finger. Findings can suggest cellulitis. No soft tissue emphysema. No radiopaque foreign body. XR/XR hand LT min 3V* [id number] IMPRESSION: 1. Findings suspicious for osteomyelitis at the dorsal aspect of the distal metaphysis on the 3rd proximal phalanx, left hand. 2. Moderate soft tissue swelling around the proximal 3rd finger. Findings can suggest cellulitis. No soft tissue emphysema.
[2023-07-17] MEDS: ampicillin-sulbactam 1.5 GM in sodium chloride 0.9% (plus) 50 ML IV (17:39)
[2023-07-17 18:15] VITALS: BP 124/73; PULSE 72; RESP 17; O2SAT 98
== END 2023-07-17 18:21 | disposition home or self-care (01) ==
PROVIDERS: Emergency Provider Nurse Practitioner; PCP Family Medicine
DX: M24.541 Contracture, right hand (principal); L03.011 Cellulitis of right finger; S61.252A Open bite of right middle finger without damage to nail, initial encounter; W55.01XA Bitten by cat, initial encounter
CPT/HCPCS: 73130; 96365; 99284; J0295